=== PATIENT | male | born 1960 | race Caucasian/White ===

== ENCOUNTER 2023-03-15 10:37 | Emergency (ER) | payer OTHER, SELFPAY ==
[2023-03-15 10:37] VITALS: BP 187/111; PULSE 78; RESP 16; TEMP 36.7; O2SAT 93; BMI 33.7
--- NOTE | 2023-03-15 10:39 | XR_ITS ---
WS: [id number] XR chest 1V portable [id number] REASON FOR EXAM: sob FINDINGS: Moderate tortuosity of the thoracic aorta. Normal heart size. Minimal calcified granulomatous disease in the hilar and perihilar regions. Old pleural pericardial thickening with tenting of the lateral left hemidiaphragm. Eventration of the right hemidiaphragm. No acute or subacute pulmonary parenchymal or pleural abnormality. Mild changes of degenerative spondylosis in the mid and lower thoracic spine. IMPRESSION: No acute chest abnormality.
[2023-03-15 11:00] LABS: Basophils # 0.1 10^3/uL (0.0-0.1); Basophils % 0.7 %; Eosinophils # 0.6 10^3/uL (0.0-0.8); Eosinophils % 6.5 %; Lymphocytes # 2.5 10^3/uL (0.8-4.8); Mean Corpuscular HGB Conc 33.4 g/dL (30-55); Mean Corpuscular Hemoglobin 28.3 pg (27-33); Mean Corpuscular Volume 84.7 fl (82-101); Mean Platelet Volume 9.8 fL (7.4-10.4); Monocytes # 0.7 10^3/uL (0.2-0.9); Monocytes % 6.6 %; Neutrophils # 5.99 10^3/uL (1.8-7.7); Neutrophils % 60.7 %; Nucleated Red Blood Cells % 0 %; Platelet Count 287 10^3/cmm (157-399); Red Cell Distribution Width 13.1 % (12.1-15.1); White Blood Count 9.87 10^3/uL (3.29-11.43)
[2023-03-15 11:13] LABS: INR 0.94 (0.8-1.2)
--- NOTE | 2023-03-15 11:17 | ECG_ITS ---
[facility] Test Date: 2023-03-15 Pat Name: Gregg Chávez Department: Room: Gender: Male [employer] Specialist: : 1960 Requested By: Arvin Elmore Order Number: [id number] Elisha MD: Mauri Covington M.D. Measurements Intervals [place] Rate: 68 P: 71 AL: 164 QRS: -25 QRSD: 113 T: 66 QT: 394 QTc: 421 Interpretive Statements SINUS RHYTHM BORDERLINE LEFT AXIS DEVIATION [QRS AXIS < -20] INCOMPLETE RIGHT BUNDLE BRANCH BLOCK [90+ ms QRS DURATION, TERMINAL R IN V1/V2, 40+ ms S IN I/aVL/V4/V5/V6] No previous ECG available for comparison Electronically Signed On 03-15-2023 11:37:47 TEST DECK SUPERVISOR by Mauri Covington M.D. [id number]
[2023-03-15 11:30] LABS: Alanine Aminotransferase 36 U/L (0-41); Alkaline Phosphatase 68 U/L (40-130); Anion Gap 18.4 (5-19); Aspartate Amino Transferase 22 U/L (0-40); Blood Urea Nitrogen 13 mg/dL (8-23); Carbon Dioxide 24 mmol/L (22-29); Chloride 98 mmol/L (98-107); Globulin 3.4 g/dL (1.3-4.6); Glomerular Filtration Rate 67.8 mL/min (90-130); Glucose 101 mg/dL (65-115); NT Pro B Type Natriuretic Pept < 36 pg/mL (0-125); Osmolality Calculated 282 mOsm/kg (285-295); Potassium 4.4 mmol/L (3.5-5.1); Sodium 136 mmol/L (136-145); Total Bilirubin 0.5 mg/dL (0.15-1.2); Total Protein 7.4 g/dL (6.6-8.7)
[2023-03-15 11:52] VITALS: BP 150/109; PULSE 78; RESP 16; O2SAT 95
--- NOTE | 2023-03-15 12:01 | ED_ITS ---
HPI - URI/Sore Throat 2 General: Chief Complaint: Upper Respiratory Infection Stated Complaint: Sob Time Seen by Provider: 03/15/23 11:13 Source: patient Mode of arrival: ambulatory Limitations: no limitations History of Present Illness: 62-year-old male states that he has had increasing cough congestion wheezing especially last 2 weeks states has been on antibiotics states he had minimal improvement. Had some shortness of breath denies any chest pain denies any fever denies any vomiting or diarrhea. Associated symptoms: Deny abdominal pain, chills, chest pain, diarrhea, fever(s), headache(s), nausea or vomiting Review of Systems 2 Const: Denies: fever(s), chills, body aches or change in appetite ENMT: Denies: throat pain or dental pain Card: Denies: chest pain Resp: Reports: dyspnea, non-productive cough and wheezing GI: Denies: abdominal pain, nausea, vomiting or diarrhea Musc: Denies: neck pain or back pain Skin/Breast: Denies: rash Neuro: Denies: headache(s) Physical Exam 2 Const: COMMON NORMALS: patient oriented x3 HENMT: COMMON NORMALS: normocephalic and atraumatic HEAD & SCALP: n ormocephalic and atraumatic Neck/C-Spine: COMMON NORMALS: full ROM and supple Chest: COMMONS NORMALS: normal inspection of the chest and normal palpation of entire chest wall Resp: COMMON NORMALS: normal respiratory effort, No retractions and No use of accessory muscles AUSCULTATION: wheezes Cardio: COMMON NORMALS: regular rate, regular rhythm and No murmurs present (Cardio) RATE: regular rate RHYTHM: regular rhythm GI: COMMON NORMALS: Normal to inspection, nondistended, normoactive bowel sounds present, Soft to palpation, non-tender and no masses PALPATION: Yes Soft to palpation Extremity: COMMON NORMALS: normal to inspection and full ROM Neuro: COMMON NORMALS: patient oriented x3, moves all extremities and no focal motor deficits Psych: COMMON NORMALS: mental status grossly normal, Normal thought process present and cooperative THOUGHT PROCESS: Normal thought process present Skin: COMMON NORMALS: no rashes or lesions noted and no wounds GENERAL SKIN EXAM: no rashes or lesions noted Course 2 Vital Signs: Vital signs: Vital Signs Temperature 98.0 F 03/15/23 10:37 Pulse Rate 75 03/15/23 12:04 Respiratory Rate 16 03/15/23 12:04 Blood Pressure 174/111 03/15/23 12:04 Pulse Oximetry 95 03/15/23 12:04 Oxygen Delivery Me thod Room Air 03/15/23 10:37 MDM - URI/Sore Throat Medical Decision Making Patient presents here with cough along with wheezing likely has undiagnosed COPD along with a bronchitis he does have albuterol at home he is improved after breathing treatment did give him Decadron we will prescribe doxycycline he is to follow-up with pulmonology return if worsening he understands agrees to plan Medical Records I reviewed the patient's medical records. Lab Data I reviewed the patient's lab results. 03/15/23 10:57 03/15/23 10:57 Laboratory Results WBC 9.87 10^3/uL (3.29-11.43) 03/15/23 10:57 RBC 5.90 10^6/uL (3.85-5.65) H 03/15/23 10:57 Hgb 16.70 g/dL (11.27-16.99) 03/15/23 10:57 Hct 50.0 % (37-53) 03/15/23 10:57 MCV 84.7 fl (82-101) 03/15/23 10:57 MCH 28.3 pg (27-33) 03/15/23 10:57 MCHC 33.4 g/dL (30-55) 03/15/23 10:57 RDW 13.1 % (12.1-15.1) 03/15/23 10:57 Plt Count 287 10^3/cmm (157-399) 03/15/23 10:57 MPV 9.8 fL (7.4-10.4) 03/15/23 10:57 Neut % (Auto) 60.7 % 03/15/23 10:57 Lymph % (Auto) 25.0 % 03/15/23 10:57 [place] % (Auto) 6.6 % 03/15/23 10:57 Eos % (Auto) 6.5 % 03/15/23 10:57 Baso % (Auto) 0.7 % 03/15/23 10:57 Neut # (Auto) 5.99 10^3/uL (1.8-7.7) 03/15/23 10:57 Lymph # (Auto) 2.5 10^3/uL (0.8-4.8) 03/15/23 10:57 [place] # (Auto) 0.7 10^3/uL (0.2-0.9) 03/15/23 10:57 Eos # (Auto) 0.6 10^3/uL (0.0-0.8) 03/15/23 10:57 Baso # (Auto) 0.1 10^3/uL (0.0-0.1) 03/15/23 10:57 Nucleated RBC % (auto) 0 % 03/15/23 10:57 Nucleated RBCs # 0.0 /100WBC 03/15/23 10:57 PT 12.90 SECONDS (12.1-14.9) 03/15/23 10:57 INR 0.94 (0.8-1.2) 03/15/23 10:57 Sodium 136 mmol/L (136-145) 03/15/23 10:57 Potassium 4.4 mmol/L (3.5-5.1) 03/15/23 10:57 Chloride 98 mmol/L (98-107) 03/15/23 10:57 Carbon Dioxide 24 mmol/L (22-29) 03/15/23 10:57 Anion Gap 18.4 (5-19) 03/15/23 10:57 BUN 13 mg/dL (8-23) 03/15/23 10:57 Creatinine 1.1 mg/dL (0.7-1.2) 03/15/23 10:57 GFR Calculation 67.8 mL/min (90-130) L 03/15/23 10:57 Glucose 101 mg/dL (65-115) 03/15/23 10:57 Calculated Osmolality 282 mOsm/kg (285-295) L 03/15/23 10:57 Calcium 9.0 mg/dL (8.5-10.5) 03/15/23 10:57 Total Bilirubin 0.5 mg/dL (0.15-1.2) 03/15/23 10:57 AST 22 U/L (0-40) 03/15/23 10:57 ALT 36 U/L (0-41) 03/15/23 10:57 Alkaline Phosphatase 68 U/L (40-130) 03/15/23 10:57 NT-Pro-B Natriuret Pep < 36 pg/mL (0-125) 03/15/23 10:57 Total Protein 7.4 g/dL (6.6-8.7) 03/15/23 10:57 Albumin 4.0 g/dL (3.5-5.2) 03/15/23 10:57 Globulin 3.4 g/dL (1.3-4.6) 03/15/23 10:57 Influenza Type A Ag negative (Negative) 03/15/23 11:42 Influenza Type B Ag negative (Negative) 03/15/23 11:42 SARS-CoV-2 Ag (Rapid) negative (Negative) 03/15/23 11:42 All radiology interpretation(s) finalized by discharge EKG Data EKG 1: I personally reviewed and interpreted this EKG as follows: EKG interpretation date: 03/15/23 EKG interpretation time: 11:17 Interpretation: nsr hr [address] or t wave abnormalities qrs 113 qtc 412 Discharge Plan Discharge Patient Disposition: Home Clinical Impression: Bronchitis Condition: Stable Prescriptions: New doxycycline hyclate 100 mg tablet 100 mg PO BID 7 Days Qty: 14 0RF No Action hydrocodone-acetaminophen 5-325 mg tablet 1 tab PO Q4H PRN (Reason: Pain) omeprazole 20 mg capsule,delayed release(DR/EC) 20 mg PO DAILY albuterol sulfate 90 mcg/actuation HFA aerosol inhaler 2 puff INHALATION Q4H PRN (Reason: Shortness Of Breath Or Wheezing) Tylenol PM Extra Strength 25-500 mg Tablet 2 tab PO QPM lkxrweasjgbchxg-ktemehzme-RF 2-30-10 mg/5 mL syrup 10 ml PO Q4H PRN (Reason: Cough) cefdinir 300 mg capsule 300 mg PO BID ezetimibe 10 mg tablet 10 mg PO QPM Discharge Orders: Discharge ED (Routine); Ordered 03/15/23 Ordered By: Arvin Elmore Referrals: João Puga MD [Physician] - 1-3 days Francisco Rodriguez [Primary Care Provider] - Discharge Diet: Advance as tolerated Discharge Activity: Resume usual activity Patient Instructions: Acute Bronchitis (ED) Coding Level of Care Code ED Director Hardware for Scar Palomino
[2023-03-15 12:04] VITALS: BP 174/111; PULSE 75; RESP 16; O2SAT 95
[2023-03-15] MEDS: hyDRALAzine 20 mg/mL INJ 1 mL 10 MG IM (12:05)
[2023-03-15 12:08] LABS: Influenza A by IFA negative (Negative); Influenza B by IFA negative (Negative)
[2023-03-15 12:09] LABS: SARS Covid-2 Antigen negative (Negative)
[2023-03-15 12:41] VITALS: BP 159/102; PULSE 63; RESP 16; O2SAT 95
--- NOTE | 2023-03-15 20:20 | DCPLANNER ---
Message sent to Elva Puga
== END 2023-03-15 12:42 | disposition home or self-care (01) ==
PROVIDERS: Emergency Provider Emergency Medicine; PCP Family Medicine
DX: J40 Bronchitis, not specified as acute or chronic (principal); Z11.52 Encounter for screening for COVID-19
CPT/HCPCS: 36415; 71045; 80053; 83880; 85025; 85610; 87426; 87804; 93005; 96372; 99285; J0360